=== PATIENT | male | born 1955 | race Caucasian/White ===

== ENCOUNTER 2019-02-17 15:48 | Emergency (ER) | payer OTHER ==
[~2019-02-17] VITALS: Ht 177.8 cm; Wt 81.7 kg
[2019-02-17] MEDS ORDERED: TOPROL XL25 MG PO (16:37)
[2019-02-17] MEDS ORDERED: WELLBUTRIN XL300 MG PO (16:37)
[2019-02-17] MEDS ORDERED: PROZAC20 MG PO (16:37)
[2019-02-17] MEDS ORDERED: TIMOLOL MALEATE5 M1 OPHTHALMIC (16:38)
[2019-02-17] MEDS ORDERED: TRAZODONE HCL50 MG PO (16:38)
[2019-02-17] MEDS ORDERED: XANAX 0.5 MG0.5 MG PO (16:38)
[2019-02-17] MEDS ORDERED: K-DUR 20 MEQ T20 MEQ PO (16:38)
[2019-02-17 17:00] LABS: ABSOLUTE NEUTROPHILS 5.2 thou/uL (1.4-8.2); BASOPHILS 0.2 % (0.0-2.0); EOSINOPHILS 0.8 % (0.0-3.0); HEMATOCRIT 50.7 % (42.0-52.0); HEMOGLOBIN 17.4 gm/dL (14.0-18.0); LYMPHOCYTES 15.8 % (24.0-44.0); MCH 31.1 pg (26.0-34.0); MCHC 34.2 g/dL (28.0-37.0); MCV 90.8 fL (80.0-100.0); MONOCYTES 7.8 % (1.0-8.0); PLATELET COUNT 167 thou/uL (150-400); POLYS 75.4 % (36.0-66.0); RBC 5.59 mil/uL (4.50-6.00); RDW 13.3 % (10.5-14.5); WBC 6.9 thou/uL (4.0-11.0)
[2019-02-17 17:04] LABS: ANION GAP 12 mmol/L (7-16); BUN 21 mg/dL (7-18); CALCIUM 9.8 mg/dL (8.5-10.1); CHLORIDE 103 mmol/L (98-107); CO2 25 mmol/L (21-32); CREATININE 1.1 mg/dL (0.7-1.3); GLUCOSE 144 mg/dL (74-106); POTASSIUM 3.7 mmol/L (3.5-5.1); SODIUM 140 mmol/L (136-145)
[2019-02-17 17:09] LABS: URINE BLOOD NEGATIVE (Negative); URINE CLARITY CLEAR; URINE COLOR YELLOW; URINE GLUCOSE-RANDOM* NEGATIVE (Negative); URINE KETONES TRACE (Negative); URINE LEUKOCYTES-REFLEX NEGATIVE (Negative); URINE NITRITE-REFLEX NEGATIVE (Negative); URINE PROTEIN (DIPSTICK) NEGATIVE (Negative); URINE SPECIFIC GRAVITY >= 1.030 (1.005-1.035)
[2019-02-17 17:10] LABS: ALBUMIN 3.9 g/dL (3.4-5.0); SALICYLATE < 2.8 mg/dL (2.8-20.0); SGOT 16 U/L (15-37); SGPT 18 U/L (30-65); TOTAL BILIRUBIN 0.8 mg/dL (<0.1-1.0); TOTAL PROTEIN 7.3 g/dL (6.4-8.2)
[2019-02-17 17:15] LABS: ICTOTEST (BILI CONFIRMATORY) Negative (Negative); URINE BILIRUBIN NEGATIVE (Negative)
[2019-02-17 17:16] LABS: AMP/METHAMP Negative (Negative); BARBITURATES Negative (Negative); BENZODIAZEPINES POSITIVE (Negative); COCAINE Negative (Negative); METHADONE Negative (Negative); OPIATES Negative (Negative); PCP Negative (Negative)
--- NOTE | 2019-02-17 19:20 | EKG ---
[facility] [place] [address] ELECTROCARDIOGRAM REPORT Name: FLOWER RUIZ Room #: REG MERLE Acevedo#: [id number] ������������������ Admission: 02/17/19 ������������������ Attend Phys: Discharge: ������������������ Date of : 51 Report #: [id number] ����������������������������������������������������������������� [id number] THIS REPORT FOR: //name// [facility] ED Test Date: 2019-02-17 Test Time: 16:56:28 Pat Name: FLOWER RUIZ Department: Room: Gender: Electrical Appliance Repairer: kf : 1955 Requested By: David Campos Order Number: [id number] MD: Beck Patel Measurements Intervals [place] Rate: 73 P: -4 [place]: 164 QRS: -6 QRSD: 88 T: 18 QT: 383 QTc: 422 Interpretive Statements Sinus rhythm Multiple premature complexes, supravent Nonspecific T wave abnormality No previous ECG available for comparison Electronically Signed On 02-17-2019 19:20:06 CDT by Beck Patel [email or web address] ��������������������������������������������� <ELECTRONICALLY SIGNED> ���������������������������������������� By: Beck Patel MD, [facility] ��������������������������������������������� 02/17/19 1920 1656 [id number] Beck Patel MD, FACC /EPI
[2019-02-18 00:10] VITALS: BP 134/75
== END 2019-02-18 00:13 ==
LOC: ER 15:48
PROVIDERS: Emergency Medicine
DX: F32.9 Major depressive disorder, single episode, unspecified (principal); H54.7 Unspecified visual loss; R45.851 Suicidal ideations